=== PATIENT | female | born 1990 | race Caucasian/White ===

== ENCOUNTER 2023-08-30 19:38 | Observation (INO) | payer OTHER, SELFPAY ==
[2023-08-30 19:50] VITALS: BP 123/82; BMI 22.8
[2023-08-30] MEDS: MORPHINE SULFATE 2 MG IV (20:17)
[2023-08-30 20:18] LABS: % Basophils 0.4 % (0-2); % Eosinophils 0.6 % (0-6); % Lymphocytes 15.2 % (20.5-51.1); % Monocytes 4.8 % (1.7-9.3); Absolute Basophils 0.1 10^3/uL (0-0.2); Absolute Eosinophils 0.1 10^3/uL (0-0.7); Absolute Immature Granulocytes 0.2 10^3/uL (0-0.05); Absolute Lymphocytes 2.4 10^3/uL (1.2-3.4); Absolute Monocytes 0.8 10^3/uL (0.1-0.6); Absolute Neutrophils 12.3 10^3/uL (1.4-6.5); Hematocrit 33.5 % (37.0-47.0); Hemoglobin 11.4 g/dL (12.0-16.0); Mean Corpuscular Hgb 30.6 pg (27.0-31.0); Mean Corpuscular Volume 89.8 fL (81.0-99.0); Mean Platelet Volume 9.8 fL (7.4-10.4); Nucleated Red Blood Cells % 0 %; Platelet Count 283 10^3/uL (130-400); Red Blood Cell Count 3.73 10^6/uL (4.20-5.40); Red Cell Dist. Width 13.8 % (11.5-14.5); White Blood Cell Count 15.7 10^3/uL (4.8-10.8)
[2023-08-30] MEDS: LR 1000 IV ×2 (20:18→21:47)
[2023-08-30 20:19] LABS: Urine Albumin Negative (Neg - Trace); Urine Bilirubin Negative (Negative); Urine Character Clear (Clear); Urine Color Yellow; Urine Glucose Negative (Negative); Urine Ketone 2+ (Negative); Urine Leukocyte 2+ (Negative); Urine Nitrite Negative (Negative); Urine Occult Blood 2+ (Negative); Urine Urobilinogen Negative (Neg - 1+)
[2023-08-30 20:32] LABS: ALT (SGPT) 21 U/L (0-35); AST (SGOT) 29 U/L (14-36); Albumin 3.5 g/dl (3.5-5.0); Alkaline Phosphatase 143 U/L (38-126); Blood Urea Nitrogen 11 mg/dl (7-17); Calcium 9.3 mg/dl (8.4-10.2); Carbon Dioxide 23 mmol/L (22-30); Chloride 101 mmol/L (98-107); Estimated Creatinine Clearance 119 ml/min; Glucose 90 mg/dl (70-99); Potassium 4.1 mmol/L (3.5-5.1); Sodium 133 mmol/L (135-145); Total Bilirubin 0.5 mg/dl (0.2-1.3); Total Protein 6.4 g/dl (6.3-8.2); eGFR > 60.00
[2023-08-30 20:34] LABS: Urine Squamous Cell 26-30 /LPF (Few)
[2023-08-30 20:35] LABS: Urine Bacteria Many (Negative); Urine Red Blood Cell 0-2 /HPF (0-2); Urine White Cell 30-40 /HPF (0-5)
[2023-08-30] MEDS: PHENERGAN 51 MG IV (20:41)
[2023-08-30] MEDS: DILAUDID 1 MG IV (21:47)
[2023-08-30] MEDS: ROCEPHIN 1000 MG IV (22:11)
[2023-08-30] MEDS: STERILE WATER FOR INJECTION 10 ML IV (22:12)
[2023-08-30] MEDS: FLUSH (NSS) 1 FLUSH IV (22:15)
[2023-08-30] MEDS: TYLENOL 1000 MG PO (23:56)
[2023-08-31] MEDS: DILAUDID 2 MG IV (00:17)
[2023-08-31] MEDS: FLUSH (NSS) 2 FLUSH IV (00:19)
[2023-08-31] MEDS: DILAUDID 1 MG IV ×4 (05:20→14:40)
[2023-08-31] MEDS: LR 1000 IV ×3 (05:21→20:39)
[2023-08-31 06:56] LABS: Hematocrit 27.6 % (37.0-47.0); Hemoglobin 9.5 g/dL (12.0-16.0); Mean Corp Hgb Conc. 34.4 g/dL (33.0-37.0); Mean Corpuscular Volume 90.2 fL (81.0-99.0); Mean Platelet Volume 9.8 fL (7.4-10.4); Platelet Count 232 10^3/uL (130-400); Red Blood Cell Count 3.06 10^6/uL (4.20-5.40); Red Cell Dist. Width 13.9 % (11.5-14.5); White Blood Cell Count 11.8 10^3/uL (4.8-10.8)
--- NOTE | 2023-08-31 06:59 | CON.MD ---
Consultation - Medical
-
see dictated note
pt 29 weeks preg
remote hx of stones
with this preg- has had sig pelvic pressure and pain
now with sig right flank pain- c/w prior episode of colic
no fevers/ some dysuria and urgency- no fevers but wbc elevated and voided ua +
u/s shows large right lower pole stone- + jet but sig hydro
pt remains in sig pain
reviewed options with pt at bedside and on speaker phone
reviewed risks, benefits, alternatives reviewed
plan for stent placement later today
check ucx
pt has received rocephin
f/u wbc
[2023-08-31] MEDS: TYLENOL 1000 MG PO ×2 (07:52→15:53)
--- NOTE | 2023-08-31 13:03 | W.PN.UPDATE ---
Update Note
Progress Note Update
pt evaluated throughout the day with at bedside
she has felt well with no pain
no fevers
wbc down
cx pending
plan
she wishes to defer intervention at thsi time as pain is minimal
she will eat and ambulate
re-eval in am
discussed with ob team
[2023-08-31] MEDS: TUMS EX (EXTRA STRENGTH) CHEWABLE 2 TABLET PO (16:43)
[2023-08-31] MEDS: ROCEPHIN 1000 MG IV (21:50)
[2023-08-31] MEDS: STERILE WATER FOR INJECTION 10 ML IV (21:51)
[2023-09-01] MEDS: TYLENOL PO (00:55)
[2023-09-01] MEDS: LR 1000 IV (05:50)
[2023-09-01] MEDS: TYLENOL 1000 MG PO (05:56)
[2023-09-01 06:32] LABS: Hematocrit 28.2 % (37.0-47.0); Hemoglobin 9.5 g/dL (12.0-16.0); Mean Corp Hgb Conc. 33.7 g/dL (33.0-37.0); Mean Corpuscular Hgb 31.1 pg (27.0-31.0); Mean Corpuscular Volume 92.5 fL (81.0-99.0); Mean Platelet Volume 9.8 fL (7.4-10.4); Platelet Count 240 10^3/uL (130-400); Red Blood Cell Count 3.05 10^6/uL (4.20-5.40)
[2023-09-01 06:57] LABS: Blood Urea Nitrogen 5 mg/dl (7-17); Calcium 9.2 mg/dl (8.4-10.2); Carbon Dioxide 28 mmol/L (22-30); Chloride 103 mmol/L (98-107); Estimated Creatinine Clearance 119 ml/min; Glucose 85 mg/dl (70-99); Iron 82 ug/dl (37-170); Potassium 3.4 mmol/L (3.5-5.1); Sodium 135 mmol/L (135-145); eGFR > 60.00
[2023-09-01 07:06] LABS: Percent Saturation 21 % (20-50); Total Iron Binding Capacity 379 ug/dl (265-497)
[2023-09-01 07:31] LABS: Ferritin 19.5 ng/ml (6.24-137)
--- NOTE | 2023-09-01 07:57 | W.PN.URO.CBU ---
Today's Communication / Plan
-
cleared for discharge
Assessment / Plan
-
passed kidney stone
reviewed with patient and ob
for discharge today
will cover with empriic antibx
pt should schedule f/u with me/ dr webster after delivery unless pain recurrs
Diagnosis
-
Date of Service: September 01, 2023
-
Patient Diagnosis:
stone
Subjective
-
pt passed a 5mm stone!
feels great
wbc normal
Objective
-
Vital Signs
Temp Pulse Resp BP Pulse Ox
99.4 F 129 20 123/82 100
08/30/23 19:50 08/30/23 19:50 08/30/23 19:50 08/30/23 19:50 08/30/23 19:50
Laboratory Results
09/01/23 06:02
09/01/23 06:02
Review of Systems
-
Constitutional: No Symptoms
Respiratory: No Symptoms
Cardiac: No Symptoms
Abdomen/GI: No Symptoms
: No Symptoms
Physical Exam
-
General - well developed, well nourished, no acute distress
== END 2023-09-01 09:03 | disposition home or self-care (01) ==
LOC: LDRP 19:38
PROVIDERS: Obstetrics & Gynecology; ADMITTING PHYSICIAN Obstetrics & Gynecology; CONSULT PHYSICIAN Specialist; FAMILY PHYSICIAN Internal Medicine
DX: N13.6 Pyonephrosis (principal); R10.31 Right lower quadrant pain; Z3A.29 29 weeks gestation of pregnancy; N20.0 Calculus of kidney; G43.909 Migraine, unspecified, not intractable, without status migrainosus; O99.343 Other mental disorders complicating pregnancy, third trimester; F41.9 Anxiety disorder, unspecified; F90.9 Attention-deficit hyperactivity disorder, unspecified type; Z53.20 Procedure and treatment not carried out because of patient's decision for unspecified reasons; Z88.2 Allergy status to sulfonamides; Z87.442 Personal history of urinary calculi
CPT/HCPCS: 76770; 76816; 76818; 80048; 80053; 81003; 81015; 82728; 83540; 83550; 85025; 85027; 87086; G0378

== ENCOUNTER 2023-10-27 13:09 | Inpatient (IN) | payer OTHER, SELFPAY ==
[2023-10-27 13:15] VITALS: BP 125/82; BMI 23.6
[2023-10-27 14:58] LABS: AST (SGOT) 55 U/L (14-36)
[2023-10-27 16:40] LABS: ALT (SGPT) 90 U/L (0-35)
[2023-10-27 17:16] LABS: % Basophils 0.7 % (0-2); % Eosinophils 1.6 % (0-6); % Immature Granulocytes 1.7 % (0-0.5); % Lymphocytes 23.8 % (20.5-51.1); % Monocytes 6.9 % (1.7-9.3); % Neutrophils 65.3 % (42.2-75.2); Absolute Basophils 0.1 10^3/uL (0-0.2); Absolute Eosinophils 0.1 10^3/uL (0-0.7); Absolute Immature Granulocytes 0.1 10^3/uL (0-0.05); Absolute Monocytes 0.6 10^3/uL (0.1-0.6); Absolute Neutrophils 5.4 10^3/uL (1.4-6.5); Hematocrit 34.9 % (37.0-47.0); Hemoglobin 11.9 g/dL (12.0-16.0); Mean Corp Hgb Conc. 34.1 g/dL (33.0-37.0); Mean Corpuscular Hgb 30.9 pg (27.0-31.0); Mean Corpuscular Volume 90.6 fL (81.0-99.0); Mean Platelet Volume 12.3 fL (7.4-10.4); Nucleated Red Blood Cells % 0 %; Platelet Count 224 10^3/uL (130-400); Red Blood Cell Count 3.85 10^6/uL (4.20-5.40); Red Cell Dist. Width 13.9 % (11.5-14.5); White Blood Cell Count 8.2 10^3/uL (4.8-10.8)
[2023-10-27 17:29] LABS: Protein/creatinine Ratio 0.9; Urine Protein 17 mg/dl
[2023-10-27] MEDS: CYTOTEC 50 MICROGRAM VAG (21:37)
[2023-10-28] MEDS: FENTANYL/BUPIVACAINE 100 EPIDURAL ×2 (03:31→10:37)
[2023-10-28] MEDS: SUBLIMAZE 100 MCG EPIDURAL (03:31)
[2023-10-28] MEDS: BRETHINE 250 MCG SC (04:35)
[2023-10-28 07:41] LABS: ALT (SGPT) 96 U/L (0-35); AST (SGOT) 61 U/L (14-36); Estimated Creatinine Clearance 119 ml/min
[2023-10-28] MEDS: PITOCIN 30 UNITS/NSS 500 ML IV (11:52)
[2023-10-28] MEDS: TYLENOL 650 MG PO ×2 (12:54→18:39)
[2023-10-28] MEDS: MOTRIN 600 MG PO (17:45)
[2023-10-28] MEDS: DILAUDID 4 MG PO (20:35)
[2023-10-29] MEDS: MOTRIN 600 MG PO ×3 (01:10→13:57)
[2023-10-29 05:10] LABS: Hematocrit 32.4 % (37.0-47.0); Hemoglobin 10.7 g/dL (12.0-16.0)
[2023-10-29 05:31] LABS: ALT (SGPT) 79 U/L (0-35); AST (SGOT) 51 U/L (14-36)
[2023-10-29] MEDS: TYLENOL 650 MG PO ×2 (07:42→13:57)
[2023-10-29] MEDS: PRENATAL PLUS 1 TABLET PO (07:43)
[2023-10-29] MEDS: SENOKOT-S 1 TABLET PO (07:43)
[2023-10-29] MEDS: DILAUDID 4 MG PO (11:38)
[2023-10-29] MEDS: HYDROCORTISONE 2.5% OINTMENT 1 APPLIC TOPICAL (18:32)
[2023-10-30] MEDS: MOTRIN 600 MG PO (00:38)
[2023-10-30] MEDS: TYLENOL 650 MG PO ×2 (00:38→07:54)
[2023-10-30 02:20] LABS: Bile Acids (Cholylglycine) 11 umol/L (0-10)
[2023-10-30] MEDS: PRENATAL PLUS 1 TABLET PO (07:54)
[2023-10-30] MEDS: SENOKOT-S 1 TABLET PO (07:54)
[2023-10-30] MEDS: DILAUDID 4 MG PO (07:55)
[2023-10-31 14:53] LABS: Syphilis/T. pallidum Ab Reflex Negative (Negative)
== END 2023-10-30 13:45 | disposition home or self-care (01) | DRG 805 ==
LOC: LDRP 13:09
PROVIDERS: Obstetrics & Gynecology; ADMITTING PHYSICIAN Obstetrics & Gynecology
PROC: 3E0DXGC Introduction of Other Therapeutic Substance into Mouth and Pharynx, External Approach (ICD-10-PCS; 2023-10-27)
PROC: 3E0P7VZ Introduction of Hormone into Female Reproductive, Via Natural or Artificial Opening (ICD-10-PCS; 2023-10-27)
PROC: 0KQM0ZZ Repair Perineum Muscle, Open Approach (ICD-10-PCS; 2023-10-28)
PROC: 10907ZC Drainage of Amniotic Fluid, Therapeutic from Products of Conception, Via Natural or Artificial Opening (ICD-10-PCS; 2023-10-28)
PROC: 10E0XZZ Delivery of Products of Conception, External Approach (ICD-10-PCS; 2023-10-28)
DX: O26.643 Intrahepatic cholestasis of pregnancy, third trimester (principal); K83.1 Obstruction of bile duct; Z37.0 Single live birth; Z3A.37 37 weeks gestation of pregnancy; O70.1 Second degree perineal laceration during delivery; O99.344 Other mental disorders complicating childbirth; G43.909 Migraine, unspecified, not intractable, without status migrainosus; O14.04 Mild to moderate pre-eclampsia, complicating childbirth; F41.9 Anxiety disorder, unspecified; O99.02 Anemia complicating childbirth; D64.9 Anemia, unspecified; Z28.310 Unvaccinated for COVID-19; Z87.442 Personal history of urinary calculi; Z87.440 Personal history of urinary (tract) infections; Z88.2 Allergy status to sulfonamides; Z82.49 Family history of ischemic heart disease and other diseases of the circulatory system; Z80.3 Family history of malignant neoplasm of breast
CPT/HCPCS: 88307; 82239; 82565; 82570; 84156; 84450; 84460; 85014; 85018; 85025; 86780; 86850; 86900; 86901

== ENCOUNTER 2024-02-01 11:46 | Emergency (ER) | payer OTHER, SELFPAY ==
[2024-02-01 11:47] VITALS: BP 147/93
--- NOTE | 2024-02-01 12:42 | ED.GENMED ---
History of Present Illness
General
Chief Complaint: Back Pain
Source: patient
Exam Limitations: none
Time Seen by Provider: 02/01/24 12:32
Nursing documentation reviewed up to this point in time: agreed with
History of Present Illness
History of Present Illness:
33-year-old female presents emergency room complaining of right flank pain, similar to prior kidney stones. No fevers. Mild nausea. Symptoms began last night.
Past History
Past History
ED Past Medical History: Other
ED Past Surgical History: None
Social History
Tobacco: Non-smoker
Alcohol: None
Drug: None
Personal: Single
Living: with family
Employment: Employed
Family History
Family History: Hypertension
Review of Systems
Review of Systems
Allergies reviewed?: Yes
All Other Systems: Not applicable
Constitutional: Reports no symptoms; Denies fever
EENT: Reports no symptoms
Respiratory: Reports no symptoms
Cardiac: Reports no symptoms
ABD/GI: Reports nausea
: Reports flank pain
Musculoskeletal: Reports no symptoms
Skin: Reports no symptoms
Neurological: Reports no symptoms
Endocrine: Reports no symptoms
Hematologic/Lymphatic: Reports no symptoms
Psychiatric: Reports no symptoms
Phy Exam
Physical Exam
Physical Exam:
Physical Exam
General: no apparent distress, not acutely ill
Neck: supple. no meningeal signs. normal posterior pharynx
Heart: s1/s2 regular rate and rhythm, no murmur. equal radial
pulses.
HEENT: Pupils equal round reactive to light, EOMI
Lungs: no acute respiratory distress. clear bilaterally
Abdomen: normal bowel sounds. not tender. mild right CVAT
Neuro: alert and oriented. no focal neurological deficits cranial nerves II through XII intact
Skin: no rash
Psychiatric: well kept. interactive and cooperative
Extremities: no edema. no calf tenderness. negative homans. good distal pulses
Course
Orders/Labs/Results
Orders:
Orders
02/01/24 12:40
IV Insert/Care/Rem.- Treatment PRN
0.9% Sodium Chloride 1000 ml [Nss] 1,000 ml IV BOLUS
Ketorolac [Toradol] 15 mg IV NOW STA
Pulse Ox/cont/shift [RESP] Stat
Quantity: 1
02/01/24 12:41
CT Abd/pel Without Iv Or Oral Urgent
Comment:
Reason For Exam: right flank pain, hx kidney stones
Test Result ONCE
02/01/24 12:50
Urinalysis Reflex To Culture Urgent
Date Specimen was Collected: 02/01/24
Time Specimen was Collected: 12:44
Urine Microscopic Reflex Cult Urgent
02/01/24 13:06
Complete Blood Count/With Diff Urgent
Comprehensive Metabolic Panel Urgent
HCG, Serum Qualitative Screen Urgent
Lipase Urgent
Abnormal Lab Results
02/01/24 02/01/24
12:50 13:06
Calcium 10.4 H mg/dl
(8.4-10.2)
ALT 55 H U/L
(0-35)
Albumin 5.2 H g/dl
(3.5-5.0)
Leukocyte Esterase Rfl Trace A
(Negative)
Urine RBC 3-6 A /HPF
(0-2)
Urine Bacteria (Reflex) Few A
(Negative)
02/01/24 13:06
02/01/24 13:06
Vital Signs
Initial and Last Documented VS:
Initial Vital Signs
Temp Pulse Resp BP Pulse Ox
98.7 F 110 16 147/93 98
02/01/24 11:47 02/01/24 11:47 02/01/24 11:47 02/01/24 11:47 02/01/24 11:47
Last Documented Vital Signs
Temp Pulse Resp BP Pulse Ox
98.7 F 90 16 110/76 98
02/01/24 11:47 02/01/24 14:49 02/01/24 14:49 02/01/24 14:49 02/01/24 14:49
MDM/Problems Addressed
Differential Diagnosis Includes:
UTI, renal calculus
MDM/Problems Addressed:
33-year-old female with ill calculi, flank pain. No stone seen in ureters. Stable for discharge. No UTI
*Radiology
Radiology exam reviewed: radiology read reviewed (CT abdomen pelvis multiple nonobstructing renal calculi without evidence of obstructive uropathy)
*Pulse Oximetry
Patient hypoxic: no
*EKG
Interpreted by ED Provider?: NA
*Florist Interpretation
Rate: Florist- N/A
*Critical Care Note
Total Time (30-74mins, 75-104mins- exclusive of procedures): Not Applicable
Patient Management
Social determinants of health affecting care: Living situation
Escalation/DeEscalation of care consider admission/obs:
Admit not indicated
ED Attending Note
-
Portions of this chart may have been created with voice recognition software.� Occasional wrong word or��sound alike� substitutions may have occurred due to the inherent limitations of voice recognition software.
Discharge Plan
Departure
Patient Disposition: Home (Routine Discharge)
Date of Disposition: 02/01/24
Time of Disposition: 15:04
Patient with high blood pressure during this ER visit?: No
Condition: Good
Discharge Problem:
Acute right flank pain, Renal calculus, right
Prescriptions:
No Action
prenat.vits,marlen,eiu-ayhh-ghyjy Tablet
1 tab PO DAILY
acetaminophen 325 mg Tablet
650 mg PO Q4HPRN PRN (Reason: mild pain) Qty: 0 0RF
ibuprofen 600 mg Tablet
600 mg PO Q6HPRN PRN (Reason: moderate pain/cramps) Qty: 0 0RF
hydromorphone [Dilaudid] 2 mg tablet
2 mg PO Q6H PRN (Reason: severe pain) Qty: 5 0RF
Referrals:
Pan White MD [Family Provider] - Call in 1-3 days for appt
Interventions
Interventions:
*Risk Screen - Suicide Last Done: 02/01/24 13:11
*Neglect/Abuse Screening Last Done: 02/01/24 13:11
ED- Fall Risk Assessment Last Done: 02/01/24 13:11
*ED COVID-19 Vaccine History Last Done: 02/01/24 13:11
ED-Musculoskeletal Assessment Last Done: 02/01/24 13:11
Discharge Date and Time
Print Language: ITALIAN
[2024-02-01] MEDS: TORADOL 15 MG IV (13:00)
[2024-02-01] MEDS: NSS 1000 IV (13:02)
[2024-02-01 13:09] LABS: Urine Albumin Negative (Neg - Trace); Urine Bilirubin Negative (Negative); Urine Character Clear (Clear); Urine Color Yellow; Urine Glucose Negative (Negative); Urine Ketone Negative (Negative); Urine Leukocyte Trace (Negative); Urine Nitrite Negative (Negative); Urine Occult Blood Negative (Negative); Urine Urobilinogen Negative (Neg - 1+); Urine pH 6.5 (5.0-9.0)
[2024-02-01 13:15] LABS: % Basophils 0.9 % (0-2); % Eosinophils 3.8 % (0-6); % Immature Granulocytes 0.2 % (0-0.5); % Lymphocytes 34.2 % (20.5-51.1); % Neutrophils 54.9 % (42.2-75.2); Absolute Basophils 0.1 10^3/uL (0-0.2); Absolute Eosinophils 0.2 10^3/uL (0-0.7); Absolute Lymphocytes 1.9 10^3/uL (1.2-3.4); Absolute Monocytes 0.3 10^3/uL (0.1-0.6); Hematocrit 39.4 % (37.0-47.0); Hemoglobin 13.4 g/dL (12.0-16.0); Mean Corpuscular Hgb 29.8 pg (27.0-31.0); Mean Corpuscular Volume 87.6 fL (81.0-99.0); Mean Platelet Volume 9.8 fL (7.4-10.4); Nucleated Red Blood Cells % 0.4 %; Platelet Count 310 10^3/uL (130-400); Red Cell Dist. Width 12.7 % (11.5-14.5); White Blood Cell Count 5.5 10^3/uL (4.8-10.8)
[2024-02-01 13:28] LABS: Urine Bacteria Few (Negative)
[2024-02-01 13:30] LABS: ALT (SGPT) 55 U/L (0-35); AST (SGOT) 35 U/L (14-36); Albumin 5.2 g/dl (3.5-5.0); Alkaline Phosphatase 74 U/L (38-126); Blood Urea Nitrogen 10 mg/dl (7-17); Calcium 10.4 mg/dl (8.4-10.2); Carbon Dioxide 28 mmol/L (22-30); Chloride 101 mmol/L (98-107); Glucose 81 mg/dl (70-99); Lipase 145 U/L (23-300); Potassium 4.1 mmol/L (3.5-5.1); Sodium 138 mmol/L (135-145); Total Bilirubin 0.7 mg/dl (0.2-1.3); Total Protein 7.8 g/dl (6.3-8.2); eGFR > 60.00
[2024-02-01 13:33] LABS: HCG, Serum Qualitative Screen Negative
[2024-02-01 14:49] VITALS: BP 110/76
[2024-02-01 15:32] VITALS: BP 109/77
== END 2024-02-01 15:15 | disposition home or self-care (01) ==
LOC: EMR 11:46
PROVIDERS: EMERGENCY PHYSICIAN Emergency Medicine; FAMILY PHYSICIAN Internal Medicine
DX: R10.9 Unspecified abdominal pain (principal); N20.0 Calculus of kidney; Z82.49 Family history of ischemic heart disease and other diseases of the circulatory system; Z87.442 Personal history of urinary calculi
CPT/HCPCS: 99284; 96374; 96361; 74176; 80053; 81003; 81015; 83690; 84703; 85025

== ENCOUNTER 2024-05-01 06:57 | Day surgery (SDC) | payer OTHER, SELFPAY ==
[2024-05-01] VITALS (8 sets, daily range): BP systolic 105–126; BP diastolic 65–90; BMI 19.6
[2024-05-01] MEDS: NORMOSOL-R/PLASMALYTE-A 1000 IV (11:34)
[2024-05-01] MEDS: DILAUDID 0.5 MG IV ×2 (14:11→14:32)
[2024-05-01] MEDS: Pyridium 200 MG PO (14:52)
[2024-05-01] MEDS: TYLENOL 650 MG PO (14:53)
[2024-05-01] MEDS: FLOMAX 0.4 MG PO (15:10)
[2024-05-07 14:09] LABS: Stone Analysis Mass 9 mg
== END 2024-05-01 15:34 | disposition home or self-care (01) ==
LOC: SDS 06:57
PROVIDERS: ATTENDING PHYSICIAN Specialist
DX: N20.0 Calculus of kidney (principal)
CPT/HCPCS: 52356; 74018; 76000; 82365; C1894; C2617

== ENCOUNTER 2024-05-05 16:57 | Inpatient (IN) | payer OTHER, SELFPAY ==
[2024-05-05] VITALS (7 sets, daily range): BP systolic 98–121; BP diastolic 70–85; BMI 20.7
[2024-05-05 14:12] LABS: Urine Albumin 1+ (Neg - Trace); Urine Bilirubin 1+ (Negative); Urine Character Slightly Cloudy (Clear); Urine Color Yellow; Urine Glucose Negative (Negative); Urine Ketone 2+ (Negative); Urine Leukocyte 1+ (Negative); Urine Nitrite Negative (Negative); Urine Occult Blood 4+ (Negative); Urine Specific Gravity 1.015 (<1.030); Urine Urobilinogen 1+ (Neg - 1+)
[2024-05-05 14:35] LABS: Urine Red Blood Cell >100 /HPF (0-2)
[2024-05-05 14:36] LABS: Urine Bacteria Few (Negative)
--- NOTE | 2024-05-05 14:36 | ED.GENMED ---
History of Present Illness
General
Chief Complaint: Abdominal Symptoms
Source: patient
Exam Limitations: none
Time Seen by Provider: 05/05/24 14:26
History of Present Illness
History of Present Illness:
See MDM
Past History
Past History
ED Past Medical History: Other
ED Past Surgical History: None
Social History
Tobacco: Non-smoker
Alcohol: None
Drug: None
Personal: Single
Living: with family
Employment: Employed
Family History
Family History: Hypertension
Phy Exam
Physical Exam
Physical Exam:
See MDM
Course
Orders/Labs/Results
Orders:
Orders
05/05/24 13:58
Urinalysis Reflex To Culture Urgent
Date Specimen was Collected: 05/05/24
Time Specimen was Collected: 13:54
Urine Microscopic Reflex Cult Urgent
Urine Culture Urgent
DEVAN Source: U
Specimen Description:
Date Specimen was Collected: 05/05/24
Time Specimen was Collected: 13:54
05/05/24 14:33
0.9% Sodium Chloride 1000 ml [Nss] 1,000 ml IV BOLUS
HYDROmorphone [Dilaudid] 0.5 mg IV NOW STA
05/05/24 14:38
COVID-19 Antigen Urgent
Source: Nasal Swab
Complete Blood Count/With Diff Urgent
Comprehensive Metabolic Panel Urgent
Lipase Urgent
Comment: ADD ON
Monotest Urgent
Comment: ADD ON
Influenza A+B Rapid Molecular Urgent
DEVAN Source: Nasal Swab
Specimen Description:
05/05/24 15:21
Add On- LAB Urgent
Tests Added?: monotest
05/05/24 15:30
Add On- LAB Urgent
Tests Added?: lipase
05/05/24 15:41
HYDROmorphone [Dilaudid] 1 mg IV NOW STA
Abnormal Lab Results
05/05/24 05/05/24
13:58 14:38
RBC 3.98 L 10^6/uL
(4.20-5.40)
Hgb 11.6 L g/dL
(12.0-16.0)
Hct 34.5 L %
(37.0-47.0)
Absolute Neuts (auto) 8.4 H 10^3/uL
(1.4-6.5)
Absolute Lymphs (auto) 0.9 L 10^3/uL
(1.2-3.4)
Absolute Monos (auto) 0.7 H 10^3/uL
(0.1-0.6)
Neutrophils % 83.6 H %
(42.2-75.2)
Lymphocytes % 8.7 L %
(20.5-51.1)
Glucose 139 H mg/dl
(70-99)
AST 206 H U/L
(14-36)
ALT 246 H U/L
(0-35)
Alkaline Phosphatase 200 H U/L
(38-126)
Urine Ketones 2+ A
(Negative)
Ur Occult Blood Reflex 4+ A
(Negative)
Urine Bilirubin 1+ A
(Negative)
Leukocyte Esterase Rfl 1+ A
(Negative)
Urine RBC >100 A /HPF
(0-2)
Urine Bacteria (Reflex) Few A
(Negative)
Urine Albumin (Reflex) 1+ A
(Neg - Trace)
05/05/24 14:38
05/05/24 14:38
Vital Signs
Initial and Last Documented VS:
Initial Vital Signs
Temp Pulse Resp BP Pulse Ox
98.3 F 84 16 118/80 99
05/05/24 13:50 05/05/24 13:50 05/05/24 13:50 05/05/24 13:50 05/05/24 13:50
Last Documented Vital Signs
Temp Pulse Resp BP Pulse Ox
98.3 F 115 19 111/72 97
05/05/24 13:50 05/05/24 15:15 05/05/24 15:15 05/05/24 15:00 05/05/24 15:00
MDM/Problems Addressed
Differential Diagnosis Includes:
HPI and MDM Narrative:
33-year-old female presenting with fever and chills and cloudy urine. Patient had a recent procedure where she required ureteral stent for kidney stone. She called the on-call urologist and sent to the emergency department. She claims compliance
with the antibiotic they prescribed her. She does have sick contacts at home but denies any sort of viral URI symptoms.
Urology aware that she is here. Will look for alternative source of infection other than urine.
Physical exam
General: Weak and fatigued.
HEENT: protecting airway. Dry mucous membranes
Neck: appears supple
CV: No evidence of cyanosis. Tachycardic
Resp: No accessory muscle use
Abd: Non-distended and nontender
Extremities: No deformities
Neuro: alert
Psych: Normal affect
Skin: Warm
Problems Addressed including Acute and Chronic Conditions affecting care:
1. Postoperative fever
Acuity: acute
Prognosis: stable
Details: Potentially in the setting of UTI with recent stent placement. Will look for alternative source of infection such as COVID and flu
Updates
UA has expected hematuria but no significant signs of infection. Urology made aware.
LFTs elevated indicating likely some sort of viral syndrome. On multiple reassessments, patient continues to have no pain in the right upper quadrant.
Differential Diagnosis (but not limited to): COVID, flu, viral URI, postoperative UTI
Testing considered: Chest x-ray but she denies any shortness of breath or cough
Drug therapy (if applicable): OTC meds, please see d/c instruction regarding Rx drugs
Amount and/or Complexity of Data Reviewed
Clinical info obtained from: Patient
External data reviewed: N/A
Labs I independently reviewed (but not limited to): Elevated LFTs
Radiology: N/A
Pulse Ox: not hypoxic
EKG independently reviewed: N/A
Lamination Technician: N/A
Critical Care: N/A
Risk of Complication:
Social Determinants of health: Good social support
Discussed with other providers: urology, hospitalist
Escalation of Care includes Admit/Obs: Given the persistent stent pain now with fevers and elevated LFTs, will admit
Occasional wrong word or 'sound a like' substitutions may have occurred due to the inherent limitations of voice recognition software. Read the chart carefully and recognize, using context, where substitutions have occurred.
*Critical Care Note
Total Time (30-74mins, 75-104mins- exclusive of procedures): Not Applicable
ED Attending Note
-
Portions of this chart may have been created with voice recognition software.� Occasional wrong word or��sound alike� substitutions may have occurred due to the inherent limitations of voice recognition software.
Discharge Plan
Departure
Patient Disposition: Admit
Date of Disposition: 05/05/24
Time of Disposition: 15:50
Admit to: Med/Surg
Presentation/result/management discussed w/ accepting MD/DO: Hospitalist
Discharge Problem:
Fever, Elevated LFTs
Prescriptions:
No Action
benzonatate 200 mg Capsule
200 mg PO TID
tramadol 50 mg Tablet
50 mg PO Q4H PRN (Reason: discomfort)
lorazepam 0.5 mg Tablet
0.5 mg PO BID PRN (Reason: anxiety)
sertraline 50 mg Tablet
50 mg PO DAILY
duloxetine 30 mg Capsule,Delayed Release(Dr/Ec)
30 mg PO HS
melatonin 1 mg Tablet
1 mg PO HS PRN (Reason: insomnia)
Referrals:
Lorena Ojeda MD [Family Provider] -
Interventions
Interventions:
*Risk Screen - Suicide Last Done: 05/05/24 13:50
*General Assessment Last Done: 05/05/24 14:39
*Neglect/Abuse Screening Last Done: 05/05/24 13:50
*ED COVID-19 Vaccine History Last Done: 05/05/24 14:39
XB-Llzepd-Tqjkylrgbp Assessment Last Done: 05/05/24 14:40
Discharge Date and Time
Print Language: CYMRO
[2024-05-05] MEDS: DILAUDID 0.5 MG IV ×2 (14:37→20:04)
[2024-05-05] MEDS: NSS 1000 IV (14:38)
[2024-05-05 14:52] LABS: % Basophils 0.3 % (0-2); % Eosinophils 0.3 % (0-6); % Immature Granulocytes 0.2 % (0-0.5); % Lymphocytes 8.7 % (20.5-51.1); % Monocytes 6.9 % (1.7-9.3); % Neutrophils 83.6 % (42.2-75.2); Absolute Lymphocytes 0.9 10^3/uL (1.2-3.4); Absolute Monocytes 0.7 10^3/uL (0.1-0.6); Absolute Neutrophils 8.4 10^3/uL (1.4-6.5); Hematocrit 34.5 % (37.0-47.0); Hemoglobin 11.6 g/dL (12.0-16.0); Mean Corp Hgb Conc. 33.6 g/dL (33.0-37.0); Mean Corpuscular Hgb 29.1 pg (27.0-31.0); Mean Corpuscular Volume 86.7 fL (81.0-99.0); Mean Platelet Volume 9.3 fL (7.4-10.4); Nucleated Red Blood Cells % 0 %; Platelet Count 303 10^3/uL (130-400); Red Blood Cell Count 3.98 10^6/uL (4.20-5.40); Red Cell Dist. Width 13.5 % (11.5-14.5); White Blood Cell Count 10.1 10^3/uL (4.8-10.8)
[2024-05-05 15:09] LABS: ALT (SGPT) 246 U/L (0-35); AST (SGOT) 206 U/L (14-36); Albumin 4.3 g/dl (3.5-5.0); Alkaline Phosphatase 200 U/L (38-126); Blood Urea Nitrogen 11 mg/dl (7-17); Calcium 9.5 mg/dl (8.4-10.2); Carbon Dioxide 26 mmol/L (22-30); Chloride 103 mmol/L (98-107); Glucose 139 mg/dl (70-99); Potassium 3.6 mmol/L (3.5-5.1); Sodium 137 mmol/L (135-145); Total Bilirubin 0.6 mg/dl (0.2-1.3); Total Protein 6.8 g/dl (6.3-8.2); eGFR > 60.00
[2024-05-05 15:22] LABS: COVID-19 Antigen Negative (Negative)
[2024-05-05 15:42] LABS: Lipase 67 U/L (23-300)
[2024-05-05 15:44] LABS: Monotest Negative (Negative)
[2024-05-05] MEDS: DILAUDID 1 MG IV (15:59)
--- NOTE | 2024-05-05 16:23 | HPS.HSE ---
Family Physician
-
Family Physician: Lorena Ojeda MD
Chief Complaint
-
Right-sided flank pain, fever
History of Present Illness
Patient is a 33-year-old female with history of bilateral nephrolithiasis with right ureteral stent placement on 05/01, depression/anxiety, migraine came to ER with new onset of right flank pain and fever. Patient have history of bilateral
nephrolithiasis and underwent right ureteral stent placement by Dr. Parsons. Post discharge patient was noticing some discomfort and blood in the urine which is expected. Although patient started to having new high-grade fever and reported to
be 103 Fahrenheit. Patient felt significantly weak and sick. No nausea or vomiting. Denies of having any diarrhea. Patient contacted primary urology office and was prescribed cephalexin of which patient took a dose yesterday evening and today in
the morning, patient continued to feel worse and came to ER for further evaluation. In ER urinalysis showing significant hematuria although no pyuria. Patient hypotensive/tachycardic concern of patient and septic.
Patient has recurring for an upper respiratory tract infection have some dry cough although no other symptoms. Denies any chest pain/palpitation/dizziness episode.
Medical History
Past Medical History
Past Medical History: Reports Other
Additional Past Medical History:
bilateral nephrolithiasis with right ureteral stent placement on 05/01, depression/anxiety, migraine
Past Surgical History: Reports Other
Social History
Tobacco: Non-smoker
Alcohol: Occasional
Drug: None
Personal:
Living: With Family
Family History
Family History: Not pertinent
Allergies / Home Medications
Allergies reflects when Allergies were last updated in [employer].
Home Medications with original date entered in [employer]
Allergy/Medication List:
Allergies
Allergy/AdvReac Type Severity Reaction Status Date / Time
Sulfa (Sulfonamide Allergy Intermediate Hives Verified 05/05/24 13:50
Antibiotics)
Home Medications
benzonatate 200 mg capsule 200 mg PO TIDPRN PRN cough 04/29/24
duloxetine 30 mg capsule,delayed release 30 mg PO HS 04/29/24
lorazepam 0.5 mg tablet 0.5 mg PO Q6HPRN PRN anxiety 04/29/24
sertraline 50 mg tablet 50 mg PO DAILY 04/29/24
tramadol 50 mg tablet 50 mg PO TIDPRN PRN moderate pain 04/29/24
cephalexin 500 mg capsule 500 mg PO BID 05/05/24
methenamin 81.6 mg-hyoscyam 0.12 mg-methblue 10.8 [id number] tablet (Uribel Tabs) 1 tab PO QIDPRN PRN bladder irritation 05/05/24
tamsulosin 0.4 mg capsule 0.4 mg PO HS 05/05/24
Review of Systems
-
A 12 point ROS was completed and negative except as noted: Yes
Physical Exam
Vital Signs
Vital Signs
Temp Pulse Resp BP Pulse Ox
98.3 F 124 19 98/71 96
05/05/24 13:50 05/05/24 16:00 05/05/24 16:00 05/05/24 16:00 05/05/24 16:00
Physical Exam
General: Well Developed, Well Nourished and No Apparent Distress
HEENT: NormoCephalic, Moist mucous membranes and Atraumatic
Respiratory: Clear
Cardiac: S1/S2 and Regular Rhythm; No Murmur or Rub
GI: Soft, Non Tender, Non Distended and Normal Bowel Sounds; No Organomegaly
Rectal: Deferred by Provider
Musculoskeletal: No Clubbing, No Cyanosis and No Edema
Skin: No Rash
Neuro: Nonfocal/grossly intact
Laboratory Results
-
05/05/24 14:38
05/05/24 14:38
Laboratory Results
Total Bilirubin 0.6 mg/dl (0.2-1.3) 05/05/24 14:38
AST 206 U/L (14-36) H 05/05/24 14:38
ALT 246 U/L (0-35) H 05/05/24 14:38
Alkaline Phosphatase 200 U/L (38-126) H 05/05/24 14:38
Lipase 67 U/L (23-300) 05/05/24 14:38
Impression/Plan
-
1. Sepsis - possible vs GI source
s/p right ureteral stent placement for nephrolithiasis on 05/01/2024
-UA showing significant RBC, 6-10 WBC. Nitrate negative ketone positive
-Patient also have transaminitis with elevated ALT/AST/ALP in 200s. Total bilirubin normal. Denies history of cholelithiasis
-Urine culture and blood culture collected in ER
-CT abdomen pelvis with IV contrast ordered to rule out any gallbladder versus renal pathology
-Maintain patient on Rocephin and Flagyl for now to cover both source
-Maintain on IV fluid as patient hypotensive/tachycardic in er
-Maintain on as needed Dilaudid for pain control
2. Acute transaminitis
-AST 206, ALT 246, ALP 200 total bilirubin normal
-Patient had vaginal delivery in October and had some cholestasis with although LFTs were in 50s at that time
-Follow-up CT abdomen pelvis report
-Primary liver/gallbladder pathology as potential differential.
3. Migraine
-Provide Toradol one-time dose in ER
-Patient also uses Excedrin at home if needed
4. Depression/anxiety
-On duloxetine and sertraline at the same time?
-Continue duloxetine at nighttime
DVT PPx -lovenox
Full code
Total time spent : 77 mins
I personally saw and examined the patient.
I have reviewed all diagnostic interpretations and treatment plans as written.
Time includes patient management by me, time spent at the patients bedside, time to review lab and imaging results, discussing patient care, documentation in the medical record, and time spent with the family or caregiver and discussing care plan
with RN/Consultants.
--- NOTE | 2024-05-05 18:25 | PTCARENOTE ---
pt admitted from ED AWx3 LCTA RA, abd soft NT +BSx4. +PP no edema, skin CDI. CB in reach pt denies pain at this time, Pain medication administered in ED
[2024-05-05] MEDS: LR 1000 IV (18:27)
[2024-05-05 19:23] LABS: Lactic Acid 0.7 mmol/L (0.7-2.0)
[2024-05-05] MEDS: ROCEPHIN 1000 MG IV (19:24)
[2024-05-05] MEDS: STERILE WATER FOR INJECTION 10 ML IV (19:24)
[2024-05-05] MEDS: FLAGYL 500 MG 100 IV (20:04)
[2024-05-05] MEDS: TYLENOL 650 MG PO (20:06)
[2024-05-05] MEDS: ZOFRAN 4 MG IV (20:48)
[2024-05-05] MEDS: ATIVAN 0.5 MG PO (22:32)
[2024-05-05] MEDS: CYMBALTA DELAYED RELEASE 30 MG PO (22:32)
[2024-05-06] MEDS: LR 1000 IV ×2 (04:17→17:22)
[2024-05-06] MEDS: FLAGYL 500 MG 100 IV ×3 (04:17→20:10)
[2024-05-06] MEDS: DILAUDID 0.5 MG IV ×2 (05:09→11:13)
[2024-05-06] MEDS: ZOFRAN 4 MG IV ×2 (05:09→11:13)
[2024-05-06 06:52] LABS: % Basophils 0.7 % (0-2); % Eosinophils 2.8 % (0-6); % Immature Granulocytes 0.2 % (0-0.5); % Lymphocytes 33.9 % (20.5-51.1); % Monocytes 13.1 % (1.7-9.3); % Neutrophils 49.3 % (42.2-75.2); Absolute Eosinophils 0.2 10^3/uL (0-0.7); Absolute Lymphocytes 1.9 10^3/uL (1.2-3.4); Absolute Monocytes 0.8 10^3/uL (0.1-0.6); Absolute Neutrophils 2.8 10^3/uL (1.4-6.5); Hematocrit 29.7 % (37.0-47.0); Hemoglobin 9.6 g/dL (12.0-16.0); Mean Corp Hgb Conc. 32.3 g/dL (33.0-37.0); Mean Corpuscular Hgb 28.9 pg (27.0-31.0); Mean Corpuscular Volume 89.5 fL (81.0-99.0); Mean Platelet Volume 10.2 fL (7.4-10.4); Nucleated Red Blood Cells % 0 %; Platelet Count 258 10^3/uL (130-400); Red Blood Cell Count 3.32 10^6/uL (4.20-5.40); Red Cell Dist. Width 13.8 % (11.5-14.5); White Blood Cell Count 5.7 10^3/uL (4.8-10.8)
[2024-05-06 07:11] LABS: ALT (SGPT) 295 U/L (0-35); AST (SGOT) 321 U/L (14-36); Albumin 3.4 g/dl (3.5-5.0); Alkaline Phosphatase 174 U/L (38-126); Blood Urea Nitrogen 8 mg/dl (7-17); Calcium 9.3 mg/dl (8.4-10.2); Carbon Dioxide 27 mmol/L (22-30); Chloride 104 mmol/L (98-107); Estimated Creatinine Clearance 117 ml/min; Glucose 98 mg/dl (70-99); Potassium 4.1 mmol/L (3.5-5.1); Sodium 140 mmol/L (135-145); Total Bilirubin 0.3 mg/dl (0.2-1.3); Total Protein 5.6 g/dl (6.3-8.2); eGFR > 60.00
[2024-05-06 08:33] VITALS: BP 119/80
[2024-05-06] MEDS: TYLENOL 650 MG PO (08:55)
[2024-05-06] MEDS: SENOKOT-S 1 TABLET PO (12:35)
--- NOTE | 2024-05-06 13:45 | CM ---
Met with patient at bedside.
IA completed.
CT abd/pelvis today -There are multiple bilateral nonobstructing renal calculi measuring up to 8 mm
There is new right sided double-J ureteral stent in satisfactory position
There is no hydronephrosis.
Lives at home in a 2 story home with and 2 children. 0 steps to enter. Flight of steps to second floor.
PLOF: Independent, driving
No DME
PCP: Cortney Wiggins, [facility]
Pharmacy: [facility]
PLAN: Home, currently no needs anticipated.
[2024-05-06] MEDS: ULTRAM 25 MG PO ×2 (15:59→22:16)
[2024-05-06 16:00] VITALS: BP 124/77
[2024-05-06] MEDS: ROCEPHIN 1000 MG IV (17:23)
[2024-05-06] MEDS: STERILE WATER FOR INJECTION 10 ML IV (17:24)
[2024-05-06] MEDS: FLUSH (NSS) 1 FLUSH IV ×2 (17:24→17:41)
--- NOTE | 2024-05-06 17:44 | W.PN.HOSP.TC ---
Addendum entered and electronically signed by Ruthy Yañez MD 05/06/24 20:36:
I saw and evaluated the patient independently. I reviewed the resident�s note and agree with findings and plan as documented by Dr. Montilla.
GENERAL: well developed, well nourished, female in some distress--c/o migraine
HEENT: NC/AT
HEART: regular rate and rhythm, +S1, +S2
LUNGS : clear to auscultation bilaterally
ABDOM: soft, nontender, nondistended, + bowel sounds
EXT: no cyanosis, clubbing, or edema
NEUROLOGIC: grossly intact
pt does not meet criteria for SIRS--does appear to have enterococcus UTI-- s/p R ureteral stent placement 4 days prior to admission for renal stones (which are still present by today CT scan)--cont rocephin/flagyl--follow for sensitivities and blood
cultures--given CT scan findings and UTI s/p recent stent placement--will consult urology--await input--pain control
Migraine-- Pt notes long history of migraines, this one feels similar--usually takes excedrin--will give tramadol prn--if no better--consider neurology consult
Acute Transaminitis --possibly from tylenol?--or infection--CT scan without any biliary/gallbladder issues--consider checking hepatitis panels.....trend LFTs
Depression/Anxiety-- Duloxetine (home med) continued. Hold sertraline.
DVT Proph - Lovenox
code status -- FULL CODE
Original Note:
Today's Communication/Plan
-
Pt on Day 2 of antibiotics. Follow up with urine and blood cultures for tailoring of Abx. Continue to trend CBCs, vital signs, and LFTs. Awaiting urology consult.
Assessment / Plan
Assessment / Plan
1. Rule Out Sepsis - Possible vs Gi source
- Patient is s/p R ureteral stent placement 4 days prior to admission.
- UA in ED showed significant RBCs, 6-10 WBC, ketone positive, no nitrites
- Blood cultures pending.
- Urine cultures grew > 100,000 enterococcus.
- Continue on Rocephin and Flagyl for now; will await sensitivities to tailor antibiotics.
- CT Abd/Pelv showed numerous bilateral nephroliths.
- Urology consulted, will see the patient.
- Dilaudid PRN for pain.
2. Acute Transaminitis
- AST/ALT 321/295, elevated from yesterday.
- CT abdomen/pelvis did not show any hepatobiliary abnormalities.
- PRN Acetominophen was discontinued.
3. Migraine
- Pt notes long history of migraines, this one feels similar.
- Decided not to give Excedrin due to the patient's hematuria being a contraindication for aspirin.
- Imitrex not an option due to patient being on Duloxetine.
- Tramadol 25mg PO q6h prn for migraine
- Zofran PRN for nausea
4. Depression/Anxiety
- Duloxetine (home med) continued. Hold sertraline.
5. DVT PPx
- Lovenox
Anticipated Discharge: 24 - 48 hours
Subjective/Interval History
-
Date of Service: May 06, 2024
Pt is on day two of her admission for new onset R flank pain and fever s/p bilateral nephrolithiasis and right ureteral stent placement 4 days prior to admission. Pt continues to complain of some abdominal pain, though today she is more concerned
about having a migraine, which she has a history of, and is causing nausea and vomiting. Patient notes that at home she normally takes a Tylenol for pain, and if the migraine is refractory, will take Excedrin or Tramadol.
Objective Data
-
Labs:
Laboratory Results
05/06/24
05:01
WBC 5.7
Hgb 9.6 L
Hct 29.7 L
Plt Count 258
Sodium 140
Potassium 4.1
Chloride 104
Carbon Dioxide 27
BUN 8
Creatinine 0.5 L
Glucose 98
Calcium 9.3
Total Bilirubin 0.3
AST 321 H
ALT 295 H
Alkaline Phosphatase 174 H
Vital Signs:
Vital Signs
Temp Pulse Resp BP Pulse Ox
99.1 F 101 18 124/77 98
05/06/24 16:00 05/06/24 16:00 05/06/24 16:00 05/06/24 16:00 05/06/24 16:00
I&O
05/05/24 05/06/24 05/07/24
06:59 06:59 06:59
Intake Total 1740 / 1740
Balance 1740 / 1740
Review of Systems
-
History Source: Patient
Constitutional: Reports No Symptoms
Respiratory: Reports No Symptoms
Cardiac: Reports No Symptoms
Abdomen/GI: Reports Abdominal Pain, Nausea and Vomiting (pt states secondary to migraine)
Neuro: Reports Headache
Physical Exam
-
General: Well Developed and Well Nourished
HEENT: Normocephalic and Atraumatic
Respiratory: Clear to Auscultation
Cardiac: Regular Rhythm
GI: Soft, Tender (mild diffuse) and Other (pt nauseous and observed vomiting)
Skin: Warm and Dry
Neuro: Awake and Alert
Psych: Calm
Data Reviewed
-
CT Scan: Report Reviewed by me (CT Abdomen/Pelvis)
[2024-05-06] MEDS: CYMBALTA DELAYED RELEASE 30 MG PO (21:27)
[2024-05-06] MEDS: ATIVAN 0.5 MG PO (21:28)
[2024-05-06 23:09] VITALS: BP 124/86
[2024-05-07] MEDS: FLAGYL 500 MG 100 IV ×2 (04:03→12:13)
[2024-05-07] MEDS: LR 1000 IV (04:03)
[2024-05-07 07:10] VITALS: BP 99/65
[2024-05-07 07:17] LABS: % Basophils 0.8 % (0-2); % Eosinophils 5.3 % (0-6); % Immature Granulocytes 0.2 % (0-0.5); % Lymphocytes 41.6 % (20.5-51.1); % Monocytes 9.7 % (1.7-9.3); % Neutrophils 42.4 % (42.2-75.2); Absolute Eosinophils 0.3 10^3/uL (0-0.7); Absolute Monocytes 0.5 10^3/uL (0.1-0.6); Hematocrit 30.9 % (37.0-47.0); Hemoglobin 10.2 g/dL (12.0-16.0); Mean Corpuscular Hgb 30.1 pg (27.0-31.0); Mean Corpuscular Volume 91.2 fL (81.0-99.0); Nucleated Red Blood Cells % 0 %; Platelet Count 261 10^3/uL (130-400); Red Blood Cell Count 3.39 10^6/uL (4.20-5.40); Red Cell Dist. Width 13.8 % (11.5-14.5); White Blood Cell Count 4.8 10^3/uL (4.8-10.8)
[2024-05-07 07:38] LABS: ALT (SGPT) 371 U/L (0-35); AST (SGOT) 230 U/L (14-36); Albumin 3.6 g/dl (3.5-5.0); Alkaline Phosphatase 176 U/L (38-126); Blood Urea Nitrogen 6 mg/dl (7-17); Calcium 9.1 mg/dl (8.4-10.2); Carbon Dioxide 28 mmol/L (22-30); Chloride 102 mmol/L (98-107); Estimated Creatinine Clearance 117 ml/min; Glucose 127 mg/dl (70-99); Magnesium 1.9 mg/dl (1.6-2.3); Potassium 3.7 mmol/L (3.5-5.1); Sodium 141 mmol/L (135-145); Total Bilirubin 0.3 mg/dl (0.2-1.3); Total Protein 5.9 g/dl (6.3-8.2); eGFR > 60.00
--- NOTE | 2024-05-07 08:00 | W.PN.UPDATE ---
Update Note
Progress Note Update
05/01: s/p right URS/laser lithotripsy/stone extraction/stent placement + left URS/stone extraction (Dr. Parsons).
Uneventful outpatient procedure.
Discharged home w/ right JJ stent in place.
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
Started empirically on Cephalexin 500 mg BID x7 days on 05/04.
Asked to call back Sun 05/05 w/ update - then noted fevers to 102/103F, myalgias - directed to ED for evaluation.
UCx 05/05 => >100k Enterococcus.
LFTs elevated.
CT imaging w/ well-positioned right ureteral stent, non-obstructing right renal stone fragments, no right hydronephrosis.
A/P:
s/p URS/LL/stone extraction/stent placement (right)
Enterococcus UTI
- IV abx pending UCx S/S
- Pyridium prn dysuria
- NSAIDs prn
D/w patient and spouse over weekend.
D/w patient at bedside.
[2024-05-07] MEDS: ULTRAM 25 MG PO (09:52)
[2024-05-07] MEDS: SENOKOT-S 1 TABLET PO (09:56)
--- NOTE | 2024-05-07 13:07 | CM ---
Patient seen at bedside with physician. Patient states that she is for discharge home with no needs. Family to transport. CM will continue to follow for discharge planning needs.
Plan; home with no needs.
--- NOTE | 2024-05-07 14:59 | W.PN.HOSP.TC ---
Addendum entered and electronically signed by Ruthy Yañez MD 05/07/24 16:29:
I saw and evaluated the patient independently. I reviewed the resident�s note and agree with findings and plan as documented by Dr. Montilla.
GENERAL: well developed, well nourished, female in no apparent distress
HEENT: NC/AT
HEART: regular rate and rhythm, +S1, +S2
LUNGS : clear to auscultation bilaterally
ABDOM: soft, nontender, nondistended, + bowel sounds
EXT: no cyanosis, clubbing, or edema
NEUROLOGIC: grossly intact
enterococcus UTI-- s/p R ureteral stent placement 4 days prior to admission for renal stones (fragments are still present by 05/06 CT scan)--change rocephin/flagyl to Unasyn--will change to augmentin at d/c--apprec urology---pain control
Migraine-- Pt notes long history of migraines, this one feels similar--usually takes excedrin--will give tramadol prn--if no better--consider neurology consult
Acute Transaminitis --possibly from tylenol? infection? or SSRIs?--CT scan without any biliary/gallbladder issues...trend LFTs (on both SNRI, duloxetine AND SSRI, zoloft)--will stop zoloft
Depression/Anxiety-- Duloxetine (home med) continued. Hold sertraline.
DVT Proph - Lovenox
code status -- FULL CODE
Original Note:
Today's Communication/Plan
-
Patient abx changed to IV Unasyn. Anticipate discharge tomorrow on PO antibiotics. Continue to trend LFTs.
Assessment / Plan
Assessment / Plan
1. Urinary Tract Infection r/o sepsis
- Patient is s/p R ureteral stent placement 4 days prior to admission.
- UA in ED showed significant RBCs, 6-10 WBC, ketone positive, no nitrites
- Condition much improved; afebrile, WBC 4.8
- Urine cultures grew > 100,000 enterococcus.
- Urine culture shows bugs sensitive to Amp, Gent, Levo, Vanco, resistant to Tetracycline.
- Abx changed to Unasyn 3g IV q6h prior to discharge.
- Patient can be discharged tomorrow on Augmentin.
- Urology consulted and saw the patient.
2. Acute Transaminitis
- AST/ALT 230/371, still elevated.
- CT abdomen/pelvis did not show any hepatobiliary abnormalities.
- PRN Acetominophen was discontinued yesterday.
- Could still be a result of other medications.
- Pt is on two antidepressant medications of the same class, both of which can cause liver injury. Sertraline was discontinued. Patient advised to discuss with therapist/PCP after discharge.
- Repeat LFT in the AM prior to d/c.
3. Migraine
- Migraine was successfully aborted.
- Pt still has headache, but notes pain is markedly improved from yesterday.
4. Depression/Anxiety
- Duloxetine (home med) continued. Hold sertraline.
5. DVT PPx
- Lovenox
Anticipated Discharge: Within 24 hours
Subjective/Interval History
-
Date of Service: May 07, 2024
Pt feeling much better this morning. Pt notes that she still has a headache, but that it it much milder than yesterday's migraine. She also notes that she is no longer nauseous or vomiting. She also denies abdominal pain or dysuria though notes some
increased urinary frequency.
Objective Data
-
Labs:
Laboratory Results
05/07/24
05:22
WBC 4.8
Hgb 10.2 L
Hct 30.9 L
Plt Count 261
Sodium 141
Potassium 3.7
Chloride 102
Carbon Dioxide 28
BUN 6 L
Creatinine 0.6
Glucose 127 H
Calcium 9.1
Total Bilirubin 0.3
AST 230 H
ALT 371 H
Alkaline Phosphatase 176 H
Vital Signs:
Vital Signs
Temp Pulse Resp BP Pulse Ox
98.2 F 81 16 99/65 98
05/07/24 07:10 05/07/24 07:10 05/07/24 07:10 05/07/24 07:10 05/07/24 07:10
I&O
05/06/24 05/07/24 05/08/24
06:59 06:59 06:59
Intake Total 1740 / 1740 1460 / 1460
Balance 1740 / 1740 1460 / 1460
Review of Systems
-
History Source: Patient
Constitutional: Reports No Symptoms
Respiratory: Reports No Symptoms
Cardiac: Reports No Symptoms
Abdomen/GI: Reports No Symptoms
Genitourinary: Reports Frequency
Neuro: Reports Headache
Physical Exam
-
General: Well Developed, Well Nourished, No Apparent Distress and Comfortable
HEENT: Normocephalic and Atraumatic
Respiratory: Clear to Auscultation
Cardiac: Regular Rhythm
GI: Soft, Nontender, Nondistended and Normal Bowel Sounds
Genito-urinary: No Costovertebral Tender
Skin: Warm and Dry
Neuro: Awake, Alert and AO x 3
Psych: Calm
Data Reviewed
-
Labs: Labs Reviewed by me and Discussed with Patient
[2024-05-07 15:49] VITALS: BP 118/76
[2024-05-07] MEDS: LR IV (16:00)
[2024-05-07] MEDS: UNASYN IV ×2 (16:41→23:01)
[2024-05-07] MEDS: CYMBALTA DELAYED RELEASE PO (23:01)
[2024-05-07 23:09] VITALS: BP 114/71
[2024-05-08] MEDS: UNASYN IV (05:24)
[2024-05-08 07:10] VITALS: BP 107/58
[2024-05-08 08:05] LABS: ALT (SGPT) 291 U/L (0-35); AST (SGOT) 81 U/L (14-36); Albumin 4.1 g/dl (3.5-5.0); Alkaline Phosphatase 209 U/L (38-126); Blood Urea Nitrogen 11 mg/dl (7-17); Calcium 9.6 mg/dl (8.4-10.2); Carbon Dioxide 30 mmol/L (22-30); Chloride 101 mmol/L (98-107); Estimated Creatinine Clearance 117 ml/min; Glucose 96 mg/dl (70-99); Potassium 4.6 mmol/L (3.5-5.1); Sodium 140 mmol/L (135-145); Total Bilirubin 0.4 mg/dl (0.2-1.3); Total Protein 6.6 g/dl (6.3-8.2); eGFR > 60.00
[2024-05-08 08:10] LABS: Hematocrit 35.8 % (37.0-47.0); Hemoglobin 11.8 g/dL (12.0-16.0); Mean Corpuscular Hgb 28.8 pg (27.0-31.0); Mean Corpuscular Volume 87.3 fL (81.0-99.0); Mean Platelet Volume 9.5 fL (7.4-10.4); Platelet Count 348 10^3/uL (130-400); Red Cell Dist. Width 13.5 % (11.5-14.5); White Blood Cell Count 7.6 10^3/uL (4.8-10.8)
[2024-05-08] MEDS: ULTRAM 25 MG PO (08:38)
--- NOTE | 2024-05-08 09:24 | W.PN.HOSP.TC ---
Addendum entered and electronically signed by Ruthy Yñaez MD 05/08/24 16:59:
I saw and evaluated the patient independently. I reviewed the resident�s note and agree with findings and plan as documented by Dr. Montilla.
GENERAL: well developed, well nourished, female in no apparent distress
HEENT: NC/AT
HEART: regular rate and rhythm, +S1, +S2
LUNGS : clear to auscultation bilaterally
ABDOM: soft, nontender, nondistended, + bowel sounds
EXT: no cyanosis, clubbing, or edema
NEUROLOGIC: grossly intact
enterococcus UTI-- s/p R ureteral stent placement 4 days prior to admission for renal stones (fragments are still present by 05/06 CT scan)--change rocephin/flagyl to Unasyn--will change to augmentin at d/c--apprec urology---pain control
Migraine-- Pt notes long history of migraines, this one feels similar--usually takes excedrin--will give tramadol prn--consider neurology consult as outpt
Acute Transaminitis --possibly from tylenol? infection? or SSRIs?--CT scan without any biliary/gallbladder issues...trend LFTs (on both SNRI, duloxetine AND SSRI, zoloft)--will stop newest med which is duloxetine and cont zoloft at d/c
Depression/Anxiety-- Sertraline (home med) continued. stop duloxetine
DVT Proph - Lovenox
code status -- FULL CODE
Original Note:
Today's Communication/Plan
-
LFTs trending down. Afebrile, normal WBCs. Residual urinary frequency secondary to UTI. Pt to be switched to PO Augmentin and discharged today.
Assessment / Plan
Assessment / Plan
1. Urinary Tract Infection r/o sepsis
- Patient is s/p R ureteral stent placement 4 days prior to admission.
- UA in ED showed significant RBCs, 6-10 WBC, ketone positive, no nitrites
- Condition much improved; afebrile, WBC 7.6 today.
- Urine cultures grew > 100,000 enterococcus.
- Urine culture shows bugs sensitive to Amp, Gent, Levo, Vanco, resistant to Tetracycline.
- Patient to be discharged on PO Augmentin today.
2. Acute Transaminitis
- AST/ALT 81 291, improving from yesterday.
- CT abdomen/pelvis did not show any hepatobiliary abnormalities.
- Pt is on two antidepressant medications of the same class, both of which can cause liver injury. Sertraline was discontinued. Patient advised to discuss with therapist/PCP after discharge.
- LFT should be repeated at outpatient follow up.
3. Migraine
- Migraine was successfully aborted.
- Pt still has headache, but notes pain is markedly improved from yesterday.
- Pt advised to follow up with PCP. Neurology referral by PCP suggested.
4. Depression/Anxiety
- Patient advised to stop the medication that was added most recently. Pt will stay on Zoloft, but discontinue the Cymbalta. Patient advised to follow up with PCP regarding this change, and tailoring of antidepressants going forward.
Anticipated Discharge: Today
Subjective/Interval History
-
Date of Service: May 08, 2024
Patient continues to feel better this morning. Patient was seen as she was waking up from sleep for the morning and states that she still has a mild headache from yesterday, but feels that it is similar to past headaches that she alleviates with
caffeine and hydration. Patient denies nausea, vomiting, diarrhea, abdominal pain, dysuria. Patient notes that she still has urinary frequency.
Objective Data
-
Labs:
Laboratory Results
05/08/24
07:10
WBC 7.6
Hgb 11.8 L
Hct 35.8 L
Plt Count 348 D
Sodium 140
Potassium 4.6
Chloride 101
Carbon Dioxide 30
BUN 11
Creatinine 0.6
Glucose 96
Calcium 9.6
Total Bilirubin 0.4
AST 81 H
ALT 291 H
Alkaline Phosphatase 209 H
Vital Signs:
Vital Signs
Temp Pulse Resp BP Pulse Ox
98.2 F 78 16 114/71 99
05/07/24 23:09 05/07/24 23:09 05/07/24 23:09 05/07/24 23:09 05/07/24 23:09
I&O
05/07/24 05/08/24 05/09/24
06:59 06:59 06:59
Intake Total 1460 / 1460 3220 / 3220
Balance 1460 / 1460 3220 / 3220
Review of Systems
-
History Source: Patient
Constitutional: Reports No Symptoms
Respiratory: Reports No Symptoms
Cardiac: Reports No Symptoms
Abdomen/GI: Reports No Symptoms
Genitourinary: Reports Frequency
Neuro: Reports Headache
Physical Exam
-
General: Well Developed, Well Nourished, No Apparent Distress and Comfortable
HEENT: Normocephalic and Atraumatic
Respiratory: Clear to Auscultation
Cardiac: Regular Rhythm
GI: Soft, Nontender and Nondistended
Genito-urinary: No Costovertebral Tender
Skin: Warm and Dry
Neuro: Awake and Alert
Psych: Calm
Data Reviewed
-
Labs: Labs Reviewed by me and Discussed with Patient
--- NOTE | 2024-05-08 09:39 | CM ---
Patient seen at bedside patient for discharge home. Patient stated that she is unsure when her ride is available and nursing aware. Patient with no needs. CM will continue to follow for discharge planning needs.
Plan; home with no needs anticipated; follow up with PCP
--- NOTE | 2024-05-08 11:35 | W.PN.URO.CBU ---
Today's Communication / Plan
-
home today on po abx
to f/u as outpatient for removal of stone and metabolic stone diathesis evaluation
Assessment / Plan
-
Enterococcus UTI s/p ureteroscopy
residual right lower pole calcifications represent numerous stone particles which on CT appear as a coherent stone due to volume averaging
Diagnosis
-
Date of Service: May 08, 2024
-
Patient Diagnosis:
Pyelonephritis s/p bilateral ureteroscopies and right ureteral stenting
Subjective
-
' I feel so much better'
Objective
-
Vital Signs
Temp Pulse Resp BP Pulse Ox
98.6 F 91 18 107/58 97
05/08/24 07:10 05/08/24 07:10 05/08/24 07:10 05/08/24 07:10 05/08/24 07:10
Intake and Output
05/07/24 05/08/24 05/09/24
06:59 06:59 06:59
Intake Total 1460 / 1460 3220 / 3220
Balance 1460 / 1460 3220 / 3220
Intake:
Oral fluids 1160 / 1160 1800 / 1800
IV fluids (Total) 100 / 100 1200 / 1200
IV piggybacks 200 / 200 220 / 220
Other:
Number of approximated SMALL 6
amounts of urine
Number of approximated MODERATE 4 7
amounts of urine
Laboratory Results
05/08/24 07:10
05/08/24 07:10
Enterococcus in urine
Physical Exam
-
General - well developed, well nourished, no acute distress
[2024-05-08 11:45] VITALS: BP 126/76
--- NOTE | 2024-05-08 18:01 | W.DCSUMMARY ---
Addendum entered and electronically signed by Ruthy Yañez MD 05/08/24 18:50:
Read, reviewed, and agree. See same day progress note for additional details. Time spent coordinating care, DC planning, review of DC plan of care with resident, transition of care, review of records in EMR, med rec, consults, notes, d/w
consultants, nursing, family, and CM = 40 minutes
Original Note:
Discharge Summary
Discharge Data
Date of Admission: 05/05/24
Date of Discharge: 05/08/24
Total time spent discharging patient (in min): 40
-
Pending Results: No
Hospital Course
Ms. Jackson is a 33 year old female who presented to the Emergency Department at [facility] on May 05 2024. Patient had a history of bilateral nephrolithiasis with right ureteral stent placement by Dr. Parsons on May 01 2024.
She also has a history of depression, anxiety and migraine. She arrived at the emergency department with new onset right flank pain and fever. Although discomfort and blood in the urine was to be expected after the procedure, the patient also
started experiencing high grade fevers with a maximum temperature of 103 at home. The patient also felt significantly weak sick. The patient denied nausea, vomiting, or diarrhea prior to presentation. The patient was prescribed Cephalexin by her
urologist prior to her presentation, but the patient began feeling worse so she came to the emergency department for evaluation. In the emergency department, urinalysis showed significant hematuria, though no pyuria. The patient exhibited
hypotension and tachycardia, which prompted concerns of sepsis, and the patient was subsequently admitted to [facility].
While in the hospital, the patient was sent for CT Scan of her Abdomen and Pelvis. This scan showed numerous stones in bilateral kidneys. The urologist was asked to consult, and upon reading the scan, noted that these multiple stones were actually
fragments of the recently lithotripsied stones. The patient was placed on prophylactic antibiotics Rocephin and Flagyl. In the interim, blood cultures did not grow any organisms, but urine cultures grew more than 100,000 enterococcus species. As the
patient progressed clinically and started to feel better, plans were made to switch the antibiotics to Unasyn, and then ultimately to oral Augmentin in preparation for discharge. The patient was advised to follow up with her primary care physician,
as well as with urology, for resolution of her symptoms.
While in the hospital the patient also suffered from an episode of a migraine. Since the patient's recent urinalysis showed hematuria, the choice was made not to give the patient's home medication of Excedrin. Since the patient also had elevated
transaminases of unknown etiology, Tylenol was also deferred. Imitrex was contraindicated due to the patient being on Duloxetine. We instead tried Tramadol as needed. The migraine was eventually successfully aborted, although the patient was left
with a minor residual headache for the rest of her stay. It was advised that the patient should see her primary care physician for a potential referral to Neurology to help manage these migraine attacks. In addition, it was advised that her primary
care physician should follow up on her elevated liver enzymes, which by the end of her stay had trended down every day until discharge.
Finally, in trying to elucidate a cause for the patients transaminitis, it was realized that the patient was taking both Duloxetine and Sertraline for her psychological conditions. Both of these medications are in the same class, and so it was
decided that in the setting of transaminitis, we would discontinue the medication that was added on to the other most recently. Cymbalta was discontinued, and Zoloft was continued. It was advised that the patient should also follow up with her
primary care physician in order to continue on this new regimen, or try a medication of a new class if symptoms of anxiety and depression persisted.
Discharge Plan
-
Patient Disposition: Home (Routine Discharge)
Discharge Diagnosis/Procedures: Enterococcus UTI
Migraine
Acute Transaminitis
Depression
Anxiety
Condition: Fair
Diet: As tolerated
Activity: As tolerated
Blood Work: would recheck LFTs in 1 week--obtain script from PCP please
Referrals:
Lorena Ojeda MD [Family Provider] - in less than 1 week
Additional Discharge Medication Instructions: Start Augumentin for UTI infection for a total of 13 days to complete a 14 day course
Stop Cymbalta for depression; continue Zoloft. Discuss with prescribing provider.
Tramadol 25mg for Migraine as needed.
Prescriptions:
New
tramadol 50 mg Tablet
25 mg PO Q6HPRN PRN (Reason: Migraine) Qty: 10 0RF
amoxicillin-pot clavulanate [Augmentin] 500-125 mg tablet
1 tab PO BID Qty: 30 0RF
Continued
benzonatate 200 mg Capsule
200 mg PO TIDPRN PRN (Reason: cough)
lorazepam 0.5 mg Tablet
0.5 mg PO Q6HPRN PRN (Reason: anxiety)
sertraline 50 mg Tablet
50 mg PO DAILY
tamsulosin 0.4 mg capsule
0.4 mg PO HS
Uribel Tabs 81.6-0.12-10.8 mg tablet
1 tab PO QIDPRN PRN (Reason: bladder irritation)
Discontinued
tramadol 50 mg Tablet
50 mg PO TIDPRN PRN (Reason: moderate pain)
duloxetine 30 mg Capsule,Delayed Release(Dr/Ec)
30 mg PO HS
cephalexin 500 mg capsule
500 mg PO BID
Discharge Orders:
Discharge Patient (As Directed); Ordered 05/08/24
Ordered By: Terence Montilla
Discharge Date and Time
Discharge Date/Time: 05/08/24 11:58
Print Language: CONGOLESE
== END 2024-05-08 11:58 | disposition home or self-care (01) | DRG 690 ==
LOC: 2 NORTH 16:57
PROVIDERS: Student in an Organized Health Care Education/Training Program; ADMITTING PHYSICIAN Hospitalist; ATTENDING PHYSICIAN Internal Medicine; EMERGENCY PHYSICIAN Student in an Organized Health Care Education/Training Program; FAMILY PHYSICIAN Hospitalist
DX: N10 Acute pyelonephritis (principal); N39.0 Urinary tract infection, site not specified; F41.9 Anxiety disorder, unspecified; F32.A Depression, unspecified; G43.909 Migraine, unspecified, not intractable, without status migrainosus; Z11.52 Encounter for screening for COVID-19
CPT/HCPCS: 74177; 80053; 81003; 81015; 83605; 83690; 83735; 85025; 85027; 86308; 87040; 87077; 87086; 87186; 87502; 87811; 96361; 96374; 96376; 99285; Q9967

== ENCOUNTER 2024-06-13 20:51 | Emergency (ER) | payer OTHER, SELFPAY ==
[2024-06-13 20:57] VITALS: BP 137/90
--- NOTE | 2024-06-13 22:34 | ED.GENMED ---
History of Present Illness
<JAROD Key - Last Filed: 06/13/24 22:54>
General
Chief Complaint: Musculo-Skeletal Complaint
Source: patient
Time Seen by Provider: 06/13/24 21:42
Nursing documentation reviewed up to this point in time: agreed with
History of Present Illness
History of Present Illness:
Pt is a 34 yo F who presents to the emergency department with a complaint of diffuse joint pain. Pt reports that she has had joint pain for about the past 1-2 weeks. She states that the pain is located in her hips, shoulders, elbows and neck. She
describes it as achy and sometimes it is sharp. She says the pain is worse with movement. She reports that she went to her PCP for the joint pain, and was tested for Lyme disease which was negative. She states that she was given tramadol from her
PCP for the joint pain. Pt states that she last took tramadol and Tylenol at 6pm before coming in to the ED. She states that the medications help with pain relief for about 5 hours, and then the joint pain comes back. She states that she has been
having chills for the past few weeks. She denies fever, injury, vomiting, headache, urinary urgency or frequency, diarrhea, a history of arthritis.
Pt states that she was hospitalized last month for nephrolithiasis and had a UTI while being hospitalized. She states that she was placed on penicillin then had an allergic reaction and that she was on different antibiotics for treatment. She states
that from being on the various antibiotics she developed C diff, which she is currently on day 6 of oral Vancomycin for.
Past History
<JAROD Key - Last Filed: 06/13/24 22:54>
Past History
ED Past Medical History: Other
ED Past Surgical History: None
Social History
Tobacco: Non-smoker
Alcohol: None
Drug: None
Personal: Single
Living: with family
Employment: Employed
Family History
Family History: Hypertension
Review of Systems
<Sirisha Leija [facility] - Last Filed: 06/13/24 22:54>
Review of Systems
Allergies reviewed?: Yes
Constitutional: Reports chills
Respiratory: Reports no symptoms
Cardiac: Reports no symptoms
ABD/GI: Reports no symptoms
: Reports no symptoms
Musculoskeletal: Reports joint pain and neck pain
Neurological: Reports no symptoms
Phy Exam
<Sirisha Leija [facility] - Last Filed: 06/13/24 22:54>
General Physical Exam
General Presentation: no apparent distress
General age: appears stated age
General Skin: warm
General Habitus: normal
General Mental: alert
General Hydration: appears well hydrated
Cardiovascular Exam
Cardiovascular Exam: regular rate/rhythm
Pulmonary Exam
Pulmonary Exam: lungs clear
Gastrointestinal Exam
Gastrointestinal Exam: non tender, soft and non distended
Musculoskeletal Exam
Musculoskeletal Exam: full ROM
Course
<Sirisha Leija, [facility] - Last Filed: 06/13/24 22:54>
Orders/Labs/Results
Orders:
Orders
06/13/24 23:01
Test Result ONCE
06/13/24 23:02
0.9% Sodium Chloride 1000 ml [Nss] 1,000 ml IV BOLUS
06/13/24 23:21
CRP [C-Reactive Protein] Urgent
Complete Blood Count/With Diff Urgent
Comprehensive Metabolic Panel Urgent
ESR [Erythrocyte Sed Rate] Urgent
HCG, Serum Qualitative Screen Urgent
Urinalysis Reflex To Culture Urgent
Date Specimen was Collected: 06/13/24
Time Specimen was Collected: 23:09
Abnormal Lab Results
06/13/24
23:21
RBC 4.14 L 10^6/uL
(4.20-5.40)
Hgb 11.8 L g/dL
(12.0-16.0)
Hct 36.9 L %
(37.0-47.0)
MCHC 32.0 L g/dL
(33.0-37.0)
Plt Count 436 H 10^3/uL
(130-400)
ESR 52 H mm/hour
(0-20)
AST 143 H U/L
(14-36)
ALT 142 H U/L
(0-35)
Alkaline Phosphatase 199 H U/L
(38-126)
C-Reactive Protein 79.90 H mg/L
(0.0-10.00)
06/13/24 23:21
06/13/24 23:21
Vital Signs
Initial and Last Documented VS:
Initial Vital Signs
Temp Pulse Resp BP Pulse Ox
98.0 F 117 18 137/90 97
06/13/24 20:57 06/13/24 20:57 06/13/24 20:57 06/13/24 20:57 06/13/24 20:57
Last Documented Vital Signs
Temp Pulse Resp BP Pulse Ox
98.0 F 97 17 112/69 98
06/13/24 20:57 06/13/24 23:27 06/13/24 23:27 06/13/24 23:27 06/13/24 23:27
Jazmynlt;Masood Medrano, - Last Filed: 06/14/24 00:47>
Orders/Labs/Results
Orders:
Orders
06/13/24 23:01
Test Result ONCE
06/13/24 23:02
0.9% Sodium Chloride 1000 ml [Nss] 1,000 ml IV BOLUS
06/13/24 23:21
CRP [C-Reactive Protein] Urgent
Complete Blood Count/With Diff Urgent
Comprehensive Metabolic Panel Urgent
ESR [Erythrocyte Sed Rate] Urgent
HCG, Serum Qualitative Screen Urgent
Urinalysis Reflex To Culture Urgent
Date Specimen was Collected: 06/13/24
Time Specimen was Collected: 23:09
Abnormal Lab Results
06/13/24
23:21
RBC 4.14 L 10^6/uL
(4.20-5.40)
Hgb 11.8 L g/dL
(12.0-16.0)
Hct 36.9 L %
(37.0-47.0)
MCHC 32.0 L g/dL
(33.0-37.0)
Plt Count 436 H 10^3/uL
(130-400)
ESR 52 H mm/hour
(0-20)
AST 143 H U/L
(14-36)
ALT 142 H U/L
(0-35)
Alkaline Phosphatase 199 H U/L
(38-126)
C-Reactive Protein 79.90 H mg/L
(0.0-10.00)
06/13/24 23:21
06/13/24 23:21
Vital Signs
Initial and Last Documented VS:
Initial Vital Signs
Temp Pulse Resp BP Pulse Ox
98.0 F 117 18 137/90 97
06/13/24 20:57 06/13/24 20:57 06/13/24 20:57 06/13/24 20:57 06/13/24 20:57
Last Documented Vital Signs
Temp Pulse Resp BP Pulse Ox
98.0 F 97 17 112/69 98
06/13/24 20:57 06/13/24 23:27 06/13/24 23:27 06/13/24 23:27 06/13/24 23:27
Jazmynlt;JAROD Key - Last Filed: 06/13/24 22:54>
MDM/Problems Addressed
Differential Diagnosis Includes:
Polyarthritis, OA
<JAROD Key - Last Filed: 06/13/24 22:54>
*Critical Care Note
Total Time (30-74mins, 75-104mins- exclusive of procedures): Not Applicable
ED Attending Note
<JAROD Key - Last Filed: 06/13/24 22:54>
-
Portions of this chart may have been created with voice recognition software.� Occasional wrong word or��sound alike� substitutions may have occurred due to the inherent limitations of voice recognition software.
<Masood Medrano DO - Last Filed: 06/14/24 00:47>
ED Attending Note
Patient seen and examined by attending physician: Yes
I performed the substantive portion of visit, reviewed & personally made and approve the management plan that is documented in note by myself or GRETA.: Yes
ED Attending Note:
Pleasant 34-year-old female presents to the emergency department with diffuse joint pains. She states that she has had pain longer than 2 minutes. She states that it is that most of her hips, shoulders, elbows, neck, and knees. Patient takes
tramadol for the pain which she describes as aching most of the time but occasionally gets sharp. Denies fever or chills. Has gone to her primary care provider and had a full litany of testing including Lyme testing which was all negative.
Patient states that tramadol and Tylenol helped with the pain but the pain medicine wears off and she is back to having severe pain. Patient has had a history of C. difficile and is on oral vancomycin. Patient has a history of kidney stones and
had a stent placed. She states that she passed the stones. Denies any current urinary symptoms. Patient denies being . She has a 7-month-old and a 3-year-old at home. Patient was seen in conjunction with the PA student. I have reviewed
and agree with the history and treatment plan presented. On my independent physical exam, patient is awake, alert, and oriented x3 minimal acute distress though she did take tramadol. Heart is regular rate and rhythm. Lungs are clear to
auscultation bilaterally without wheezes rales or rhonchi present. Abdomen is soft and nontender. She is moving all 4 extremities. Good distal pulses. Skin is warm and dry. Mentating appropriately. Normal affect.
Patient aware of her elevated CRP and LFTs. She states that her liver function test are usually elevated with increased Tylenol usage. I advised her to not take Tylenol until her LFTs have normalized.
Discharge Plan
Departure
Patient Disposition: Home (Routine Discharge)
Date of Disposition: 06/14/24
Time of Disposition: 00:41
Patient with high blood pressure during this ER visit?: Yes
Condition: Good
Discharge Problem:
Musculoskeletal pain
Instructions: Muscle and Bone Pain (DC)
Prescriptions:
New
oxycodone 5 mg capsule
5 mg PO TID PRN (Reason: Pain) Qty: 10 0RF
No Action
benzonatate 200 mg Capsule
200 mg PO TIDPRN PRN (Reason: cough)
lorazepam 0.5 mg Tablet
0.5 mg PO Q6HPRN PRN (Reason: anxiety)
sertraline 50 mg Tablet
50 mg PO DAILY
tamsulosin 0.4 mg capsule
0.4 mg PO HS
Uribel Tabs 81.6-0.12-10.8 mg tablet
1 tab PO QIDPRN PRN (Reason: bladder irritation)
tramadol 50 mg Tablet
25 mg PO Q6HPRN PRN (Reason: Migraine) Qty: 10 0RF
amoxicillin-pot clavulanate [Augmentin] 500-125 mg tablet
1 tab PO BID Qty: 30 0RF
Referrals:
Lorena Ojeda MD [Family Provider] -
Dinorah Salazar MD [Active] - Next open appointment
Activity Restrictions/Additional Instructions:
Do not take Tylenol or acetaminophen until your liver function tests have normalized. Please repeat lab work with your family doctor.
It was a pleasure meeting you and taking part in your care. We hope for your continued healing and wellness.
Please read discharge instructions in their entirety. However, they are for general education and may not describe your exact diagnosis at discharge. Information on your ER visit and medical conditions were discussed with you along with appropriate
follow up information...
If indicated, please take your medications as instructed and indicated on discharge paperwork.
Please schedule a follow up appointment as directed. Call to schedule an appointment
Please return to the emergency department with ANY change in, persisting, or worsening of symptoms. If any of your symptoms do not improve, or persist, or become more severe within 6-12 hours, please return to the emergency department for further
care.
Please return to the emergency department if you develop a headache, neck pain/stiffness, fever greater than 100.4F, chest pain, shortness of breath, persistent nausea, vomiting, slurred speech, difficulty walking, numbness/tingling, weakness, signs
of infection or any other symptoms that are worrisome to you.
If you have any questions or concerns please do not hesitate to call the Hospital at or E-mail me directly at [email or web address]
Interventions
Interventions:
*Risk Screen - Suicide Last Done: 06/13/24 20:57
*Neglect/Abuse Screening Last Done: 06/13/24 20:57
*ED COVID-19 Vaccine History Last Done: 06/13/24 20:57
ED-Musculoskeletal Assessment Last Done: 06/13/24 22:50
Discharge Date and Time
Print Language: UPPER SORBIAN
[2024-06-13 23:27] VITALS: BP 112/69
[2024-06-13] MEDS: NSS 1000 IV (23:30)
[2024-06-13 23:32] LABS: Urine Albumin Negative (Neg - Trace); Urine Bilirubin Negative (Negative); Urine Character Clear (Clear); Urine Color Yellow; Urine Glucose Negative (Negative); Urine Ketone Negative (Negative); Urine Leukocyte Negative (Negative); Urine Nitrite Negative (Negative); Urine Occult Blood Negative (Negative); Urine Urobilinogen Negative (Neg - 1+)
[2024-06-13 23:38] LABS: % Basophils 0.7 % (0-2); % Eosinophils 1.6 % (0-6); % Immature Granulocytes 0.4 % (0-0.5); % Lymphocytes 25.1 % (20.5-51.1); % Neutrophils 65.2 % (42.2-75.2); Absolute Basophils 0.1 10^3/uL (0-0.2); Absolute Eosinophils 0.2 10^3/uL (0-0.7); Absolute Lymphocytes 2.3 10^3/uL (1.2-3.4); Absolute Monocytes 0.6 10^3/uL (0.1-0.6); Hematocrit 36.9 % (37.0-47.0); Hemoglobin 11.8 g/dL (12.0-16.0); Mean Corpuscular Hgb 28.5 pg (27.0-31.0); Mean Corpuscular Volume 89.1 fL (81.0-99.0); Mean Platelet Volume 9.2 fL (7.4-10.4); Nucleated Red Blood Cells % 0 %; Platelet Count 436 10^3/uL (130-400); Red Blood Cell Count 4.14 10^6/uL (4.20-5.40); Red Cell Dist. Width 13.3 % (11.5-14.5); White Blood Cell Count 9.1 10^3/uL (4.8-10.8)
[2024-06-13 23:39] LABS: HCG, Serum Qualitative Screen Negative
[2024-06-14] LABS: ALT (SGPT) 142 U/L (0-35); AST (SGOT) 143 U/L (14-36); Albumin 4.2 g/dl (3.5-5.0); Alkaline Phosphatase 199 U/L (38-126); Blood Urea Nitrogen 15 mg/dl (7-17); Calcium 9.8 mg/dl (8.4-10.2); Carbon Dioxide 29 mmol/L (22-30); Chloride 101 mmol/L (98-107); Glucose 87 mg/dl (70-99); Potassium 4.3 mmol/L (3.5-5.1); Sodium 141 mmol/L (135-145); Total Bilirubin 0.2 mg/dl (0.2-1.3); Total Protein 6.9 g/dl (6.3-8.2); eGFR > 60.00
[2024-06-14 00:22] LABS: Erythrocyte Sed Rate 52 mm/hour (0-20)
[2024-06-14 00:50] VITALS: BP 104/64
== END 2024-06-14 01:05 | disposition home or self-care (01) ==
LOC: EMR 20:51
PROVIDERS: EMERGENCY PHYSICIAN Student in an Organized Health Care Education/Training Program; FAMILY PHYSICIAN Hospitalist
DX: M79.18 Myalgia, other site (principal); Z82.49 Family history of ischemic heart disease and other diseases of the circulatory system; Z87.440 Personal history of urinary (tract) infections; Z87.442 Personal history of urinary calculi
CPT/HCPCS: 99283; 80053; 81003; 84703; 85025; 85652; 86140

== ENCOUNTER → 2024-07-16 13:02 | Outpatient (REF) | payer OTHER, SELFPAY | LOC: HWRAD 13:02 | PROVIDERS: ATTENDING PHYSICIAN Student in an Organized Health Care Education/Training Program; FAMILY PHYSICIAN Hospitalist | DX: M02.9 Reactive arthropathy, unspecified (principal) | CPT/HCPCS: 72050 ==